=== PATIENT | female | born 1955 | race Caucasian/White ===

== ENCOUNTER 2017-05-07 06:35 | Emergency (ER) | payer BC ==
[2017-05-07 06:51] VITALS: TEMP 98.2; BMI 26.5
--- NOTE | 2017-05-07 07:06 | PDOC ---
History of Present Illness - General Chief Complaint: Headache Stated Complaint: HEADACHE, SINUS PAIN Time Seen by Provider: 05/07/17 07:06 - History of Present Illness Initial Comments: 05/07/17 07:26 Ms. Machuca is a 61 yo female with a significant past medical history of HTN, endometriosis and thyroid disease who presents to the emergency department with a one week history of runny nose, sinus pain, body aches/pains, chills, and headache. The patient denies chest pain, shortness of breath, and dizziness. Denies fever , nausea, vomit, diarrhea and constipation. Denies dysuria, frequency, urgency and hematuria. Allergies: NKDA Past surgical history: Illeostomy for endometriosis complications Past History - Past Medical History Allergies/Adverse Reactions: Allergies Allergy/AdvReac Type Severity Reaction Status Date / Time No Known Allergies Allergy Verified 05/07/17 06:47 Home Medications: Ambulatory Orders Thyroid,Pork [[place] Thyroid] 60 mg PO DAILY 08/02/12 Estrogens,Conjugated [Premarin] 0.3 mg PO DAILY 05/24/14 Ibuprofen [Advil -] 400 mg PO PRN PRN 05/24/14 Losartan Potassium [Cozaar] 50 mg PO BID 05/24/14 Amoxicillin/Potassium Clav [Amox-Clav 500-125 mg Tablet] 1 each PO TID #21 tablet 05/07/17 Anemia: No Asthma: No Cancer: No CHF: No Diabetes: No HTN: Yes Hypercholesterolemia: No Thyroid Disease: Yes - Surgical History Abdominal Surgery: Yes (ABD SURGERY,ILEOSTOMY WITH REVERSAL) - Suicide/Smoking/Psychosocial Hx Smoking Status: No Smoking History: Never smoked Have you smoked in the past 12 months: No Number of Cigarettes Smoked Daily: 0 Information on smoking cessation initiated: No Hx Alcohol Use: No Drug/Substance Use Hx: No Substance Use Type: None Review of Systems - Review of Systems Comments:: 05/07/17 07:27 GENERAL/CONSTITUTIONAL: +Chills. General body aches. No weakness. HEAD, EYES, EARS, NOSE AND THROAT: +Sinus pain with rhinnorhea. No change in vision. No ear pain or discharge. No sore throat. CARDIOVASCULAR: No chest pain or shortness of breath RESPIRATORY: +Cough, no wheezing or hemoptysis. GASTROINTESTINAL: No nausea, vomiting, diarrhea or constipation. GENITOURINARY: No dysuria, frequency, or change in urination. MUSCULOSKELETAL: No joint or muscle swelling or pain. No neck or back pain. SKIN: No rash NEUROLOGIC: +Hheadache, no vertigo, loss of consciousness, or change in strength /sensation. ENDOCRINE: No increased thirst. No abnormal weight change HEMATOLOGIC/LYMPHATIC: No anemia, easy bleeding, or history of blood clots. ALLERGIC/IMMUNOLOGIC: No hives or skin allergy. *Physical Exam - Vital Signs Last Vital Signs Temp Pulse Resp BP Pulse Ox 98.2 F 57 L 14 151/82 100 05/07/17 06:48 05/07/17 06:48 05/07/17 06:48 05/07/17 06:48 05/07/17 06:48 - Physical Exam Comments: 05/07/17 07:27 GENERAL: Awake, alert, and fully oriented, in no acute distress HEAD: +No tenderness to sinus palpation. No signs of trauma, normocephalic, atraumatic EYES: PERRLA, EOMI, sclera anicteric, conjunctiva clear ENT: Auricles normal inspection, hearing grossly normal, nares patent, oropharynx clear without exudates. Moist mucosa NECK: Normal ROM, supple, no lymphadenopathy, JVD, or masses LUNGS: No distress, speaks full sentences, clear to auscultation bilaterally HEART: Regular rate and rhythm, normal S1 and S2, no murmurs, rubs or gallops, peripheral pulses normal and equal bilaterally. ABDOMEN: Soft, nontender, normoactive bowel sounds. No guarding, no rebound. No masses EXTREMITIES: Normal inspection, Normal range of motion, no edema. No clubbing or cyanosis. NEUROLOGICAL: Cranial nerves II through XII grossly intact. Normal speech, normal gait, no focal sensorimotor deficits SKIN: Warm, Dry, normal turgor, no rashes or lesions noted. Medical Decision Making - Medical Decision Making 05/07/17 07:34 Ms. Machuca presents with aches/pains, chills, sinus pressure, etc. 05/07/17 08:05 Flu swab negative. Will discharge with amoxil prescription for sinusitis. *DC/Admit/Observation/Transfer Diagnosis at time of Disposition: Sinusitis Qualifiers: Sinusitis location: unspecified location Chronicity: acute Recurrence: not specified as recurrent Qualified Code(s): J01.90 - Acute sinusitis, unspecified ; J01.90 - Acute sinusitis, unspecified - Discharge Dispostion Disposition: HOME
--- NOTE | 2017-05-07 08:18 | PDOC ---
Attending Attestation - Resident Resident Name: Bowen Hernandez - ED Attending Attestation I have performed the following: I have examined & evaluated the patient, The case was reviewed & discussed with the resident, I agree w/resident's findings & plan, Exceptions are as noted - Medical Decision Making 05/07/17 08:18 A portion of this note was written by my scribe under my supervision. Vital Signs Temp Pulse Resp BP Pulse Ox 98.2 F 57 L 14 151/82 100 05/07/17 06:48 05/07/17 06:48 05/07/17 06:48 05/07/17 06:48 05/07/17 06:48 61 yo F c hx DM, HTN, HLD p/w headache, body aches, chills, facial pain. Pt reports she gets sinus infections yearly that typically requires amoxicillin. Denies fevers. This has been occurring for over a week with facial pain. Likely sinusitis, probable viral vs. early bacterial. Given the duration of symptoms and pt's history, will initiate amoxicillin. Supportive care Follow up with PMD <Jacobo Gong - Last Filed: 05/07/17 08:12> - HPI HPI: 05/07/17 08:26 61 yr old female, with significant past medical history of HTN, endometriosis, thyroid disease, who presents to the emergency room today complaining of nasal congestion, body aches, facial pain, headache, chills x1 week. She states that she often gets sinus infections around this time of year and these current symptoms feel similar. Denies fever, nausea, vomiting, abdominal pain. Denies cough, sore throat. Denies abdominal pain. Denies chest pain, SOB. Allergies: NKDA PCP: Dr. Nupur Street - Physicial Exam PE: 05/07/17 08:27 GENERAL: Awake, alert, and fully oriented, in no acute distress HEAD: No signs of trauma EYES: PERRLA, EOMI, sclera anicteric, conjunctiva clear ENT: +maxillary sinus tenderness. tympanic membranes normal. Auricles normal inspection, hearing grossly normal, nares patent, oropharynx clear without exudates. Moist mucosa NECK: Normal ROM, supple, no lymphadenopathy, JVD, or masses LUNGS: Breath sounds equal, clear to auscultation bilaterally. No wheezes, and no crackles HEART: Regular rate and rhythm, normal S1 and S2, no murmurs, rubs or gallops ABDOMEN: Soft, nontender, normoactive bowel sounds. No guarding, no rebound. No masses EXTREMITIES: Normal range of motion, no edema. No clubbing or cyanosis. No cords, erythema, or tenderness NEUROLOGICAL: Cranial nerves II through XII grossly intact. Normal speech, normal gait SKIN: Warm, Dry, normal turgor, no rashes or lesions noted. <Yamilka Esteves - Last Filed: 05/07/17 08:30>
[2017-05-07 08:39] VITALS: BP 150/80; PULSE 58
--- NOTE | 2017-05-07 09:48 | PDOC ---
Patient Follow-up (Call Back) - Post ED Follow - Up Chief Complaint: RX issue Condition at time of discharge: Good Disposition at time of original discharge: HOME Reason for Call Back: Complaint/Condition F/U (Pt. called to state that her prescription did not get sent to the pharmacy. Pharmacy not recieving our e- script. Called in augmentin 500-125mg 1 tab TID #21 no refills as prescribed by her doctor.)
== END 2017-05-07 08:40 | disposition home or self-care (01) ==
LOC: JER 06:35
DX: J01.90 Acute sinusitis, unspecified (principal); I10 Essential (primary) hypertension; E07.9 Disorder of thyroid, unspecified
CPT/HCPCS: 87804; 99282-25

== ENCOUNTER 2018-04-27 00:25 | Emergency (ER) | payer BC ==
[2018-04-27 00:41] VITALS: BP 166/70; PULSE 64; TEMP 98.3; BMI 27.3
--- NOTE | 2018-04-27 01:01 | PDOC ---
History of Present Illness <Jackson Morse - Last Filed: 04/27/18 01:00> - General History Source: Patient Exam Limitations: No Limitations - History of Present Illness Initial Comments: 04/27/18 01:09 The patient is a 62-year-old female with past medical history significant for HTN, DM, HLD, and hypothyroidism presents to the emergency department with elevated blood pressure. The patient reports earlier today she noted her blood pressure was 200/100. The patient reports following she took her routined 50mg of losartan, without a decrease in BP. The patient reports around 10:00 she took 2.5 of bystolic The patient reports around 12:00 am she noticed no relief, so she took another 2.5 mg of the medication, with a noted decrease in blood pressure. The patient denies a headache, nausea, vomiting, chest pain, shortness of breath, recent illness or travel, rashes, bruises, or chills. Allergies: NKA PCP: Dr. Street/Osbaldo. <Aubree Conde - Last Filed: 04/27/18 01:27> - General Chief Complaint: Blood Pressure Problem Stated Complaint: HIGH BLOOD PRESSURE Time Seen by Provider: 04/27/18 00:50 Past History - Past Medical History Anemia: No Asthma: No Cancer: No Cardiac Disorders: No CVA: No COPD: No CHF: No DVT: No Dementia: No Diabetes: No Dialysis: No GI Disorders: No Disorders: No HTN: Yes Hypercholesterolemia: No Kidney Stones: No Liver Disease: No Psychiatric Problems: No Seizures: No Thyroid Disease: Yes Lung CA: No - Surgical History Abdominal Surgery: Yes (ABD SURGERY,ILEOSTOMY WITH REVERSAL) - Suicide/Smoking/Psychosocial Hx Smoking Status: No Smoking History: Never smoked Have you smoked in the past 12 months: No Number of Cigarettes Smoked Daily: 0 Information on smoking cessation initiated: No Hx Alcohol Use: No Drug/Substance Use Hx: No Substance Use Type: None <Jackson Morse - Last Filed: 04/27/18 01:00> <Aubree Conde - Last Filed: 04/27/18 01:27> - Past Medical History Allergies/Adverse Reactions: Allergies Allergy/AdvReac Type Severity Reaction Status Date / Time No Known Allergies Allergy Verified 04/27/18 00:42 Home Medications: Ambulatory Orders Thyroid,Pork [[place] Thyroid] 60 mg PO DAILY 08/02/12 Estrogens,Conjugated [Premarin] 0.3 mg PO DAILY 05/24/14 Losartan Potassium [Cozaar] 50 mg PO BID 05/24/14 Estradiol [Estrace] 42.5 gm VG DAILY 01/21/18 Review of Systems - Review of Systems Comments:: 04/27/18 01:09 ROS: A complete review of 10 out of 10 review of systems is taken and is negative apart from what is previously mentioned below and in the HPI. <Aubree Conde - Last Filed: 04/27/18 01:27> *Physical Exam - Vital Signs Last Vital Signs Temp Pulse Resp BP Pulse Ox 98.3 F 64 18 166/70 100 04/27/18 00:38 04/27/18 00:38 04/27/18 00:38 04/27/18 00:38 04/27/18 00:38 <Jackson Morse - Last Filed: 04/27/18 01:00> - Vital Signs Last Vital Signs Temp Pulse Resp BP Pulse Ox 98.3 F 64 18 166/70 100 04/27/18 00:38 04/27/18 00:38 04/27/18 00:38 04/27/18 00:38 04/27/18 00:38 - Physical Exam Comments: 04/27/18 01:09 Vitals: Triage vital signs reviewed General Appearance: No acute distress, well nourished, well developed Neck: Supple; No nuchal rigidity Chest Wall: Nontender Cardiac: Regular rate and rhythm, no murmurs, no rubs, no gallops Lungs: Clear to auscultation bilateral, good air movement bilaterally Abdomen: Soft, nondistended, normal bowel sounds, nontender to palpation Extremities: Full range of motion to all extremities, no cyanosis, clubbing, or edema Skin: Warm and dry, no rashes or lesions, no rash, no petechiae Neuro: AOX3; Cranial Nerves 2-12 grossly intact, Strength intact to all extremities, Sensation intact to all extremities, gait normal Psych: Normal mood, normal affect 04/27/18 01:26 <Aubree Conde - Last Filed: 04/27/18 01:27> Medical Decision Making - Medical Decision Making 04/27/18 01:20 The patient is a 62-year-old female with past medical history significant for HTN, DM, HLD, and hypothyroidism presents to the emergency department with elevated blood pressure. The patient reports earlier today she noted her blood pressure was 200/100. The patient reports following she took her routined 50mg of losartan, without a decrease in BP. The patient reports around 10:00 she took 2.5 of bystolic The patient reports around 12:00 am she noticed no relief, so she took another 2.5 mg of the medication, with a noted decrease in blood pressure. The patient denies a headache, nausea, vomiting, chest pain, shortness of breath, recent illness or travel, rashes, bruises, or chills. <Aubree Conde - Last Filed: 04/27/18 01:27> *DC/Admit/Observation/Transfer - Discharge Dispostion Decision to Admit order: No <Jackson Morse - Last Filed: 04/27/18 01:00> - Attestations Scribe Attestion: 04/27/18 01:09 Documentation prepared by Aubree Conde, acting as medical laboratory technicians for Jackson Morse MD. <Aubree Conde - Last Filed: 04/27/18 01:27> Diagnosis at time of Disposition: High blood pressure Qualifiers: Hypertension type: unspecified Qualified Code(s): I10 - Essential (primary) hypertension - Discharge Dispostion Disposition: HOME - Referrals Referrals: Nolvia Street MD [Primary Care Provider] - - Patient Instructions Additional Instructions: Continue to take your medications as prescribed. Follow up with her doctor on Saturday to have her blood pressure rechecked. Return to the emergency department for any severe headache chest pain shortness of breath or for any concerns. - Post Discharge Activity
== END 2018-04-27 01:09 | disposition home or self-care (01) ==
LOC: JER 00:25
DX: I10 Essential (primary) hypertension (principal); E78.5 Hyperlipidemia, unspecified; E03.9 Hypothyroidism, unspecified; E11.9 Type 2 diabetes mellitus without complications
CPT/HCPCS: 99281-25

== ENCOUNTER 2019-07-07 22:11 | Emergency (ER) | payer BC ==
[2019-07-07 22:30] VITALS: TEMP 98.1; BMI 26.2
[2019-07-07] MEDS ORDERED: HYDROCHLOROTHIAZIDE 25 MG TABLET (FP) PO ONE (22:48)
[2019-07-07] MEDS ORDERED: amLODIPine BESYLATE 10 MG TABLET (FP) PO ONE (22:54)
[2019-07-07] MEDS ORDERED: amLODIPine BESYLATE 5 MG TABLET (FP) ONE (23:00)
[2019-07-07] MEDS ORDERED: HYDROCHLOROTHIAZIDE 25 MG TABLET (FP) ONE (23:00)
[2019-07-08] MEDS ORDERED: diazePAM 5 MG TABLET PO ONE (00:09)
--- NOTE | 2019-07-08 00:10 | PDOC ---
Documentation entered by Bernarda Raza SCRIBE, acting as scribe for Daksha Dotson MD. Daksha Dotson MD: This documentation has been prepared by the Luz Marina thomas Xhesika, SCRIBE, under my direction and personally reviewed by me in its entirety. I confirm that the documentation accurately reflects all work, treatment, procedures, and medical decision making performed by me. History of Present Illness - General Chief Complaint: Blood Pressure Problem Stated Complaint: HYPERTENTION Time Seen by Provider: 07/07/19 22:37 History Source: Patient Exam Limitations: No Limitations - History of Present Illness Initial Comments: 07/07/19 22:52 The patient is a 63 year old female with a past medical history significant for HTN, HLD, and hypothyroidism presents to the emergency department with 1 day of elevated blood pressure. The patient reports earlier today she noted her blood pressure was in the 200s (normally 120's- 150's). The patient reports she took her routine losartan and bystolic, without a decrease in BP so she took another bystolic at 12:00am. The patient reports she was not able to sleep last night and feels anxious due to her HTN. Pt notes she spoke with her senior sales administrator and was advised to come to the ED. The patient denies chest pain, [place], shortness of breath, headache and dizziness. Denies fever, chills, cough, nausea, vomiting, diarrhea and constipation. Denies dysuria, frequency, urgency and hematuria. Allergies: NKA PCP: Dr. Street/Felix Cards: [place] Past History - Past Medical History Allergies/Adverse Reactions: Allergies Allergy/AdvReac Type Severity Reaction Status Date / Time No Known Allergies Allergy Verified 04/27/18 00:42 Home Medications: Ambulatory Orders Thyroid,Pork [[place] Thyroid] 60 mg PO DAILY 08/02/12 Estrogens,Conjugated [Premarin] 0.3 mg PO DAILY 05/24/14 Losartan Potassium [Cozaar] 50 mg PO BID 05/24/14 Estradiol [Estrace] 42.5 gm VG DAILY 01/21/18 Anemia: No Asthma: No Cancer: No Cardiac Disorders: No CVA: No COPD: No CHF: No DVT: No Dementia: No Diabetes: No Dialysis: No GI Disorders: No Disorders: No HTN: Yes Hypercholesterolemia: No Kidney Stones: No Liver Disease: No Psychiatric Problems: No Seizures: No Thyroid Disease: Yes Lung CA: No - Surgical History Abdominal Surgery: Yes (ABD SURGERY,ILEOSTOMY WITH REVERSAL) - Psycho Social/Smoking Cessation Hx Smoking Status: No Smoking History: Never smoked Have you smoked in the past 12 months: No Number of Cigarettes Smoked Daily: 0 Hx Alcohol Use: No Drug/Substance Use Hx: No Substance Use Type: None Review of Systems - Review of Systems Able to Perform ROS?: Yes Comments:: 07/07/19 22:53 GENERAL/CONSTITUTIONAL: No fever or chills. No weakness. HEAD, EYES, EARS, NOSE AND THROAT: No change in vision. No ear pain or discharge. No sore throat. CARDIOVASCULAR: + elevated blood pressure. No chest pain or shortness of breath. RESPIRATORY: No cough, wheezing, or hemoptysis. GASTROINTESTINAL: No nausea, vomiting, diarrhea or constipation. GENITOURINARY: No dysuria, frequency, or change in urination. MUSCULOSKELETAL: No joint or muscle swelling or pain. No neck or back pain. SKIN: No rash NEUROLOGIC: No headache, vertigo, loss of consciousness, or change in strength/ sensation. ENDOCRINE: No increased thirst. No abnormal weight change. HEMATOLOGIC/LYMPHATIC: No anemia, easy bleeding, or history of blood clots. ALLERGIC/IMMUNOLOGIC: No hives or skin allergy. *Physical Exam - Vital Signs Last Vital Signs Temp Pulse Resp BP Pulse Ox 98.1 F 66 20 204/83 H 98 07/07/19 22:15 07/07/19 22:15 07/07/19 22:15 07/07/19 22:15 07/07/19 22:15 - Physical Exam 07/07/19 22:53 GENERAL: Awake, alert, and fully oriented, in no acute distress LUNGS: Breath sounds equal, clear to auscultation bilaterally. No wheezes, and no crackles HEART: Regular rate and rhythm, normal S1 and S2, no murmurs, rubs or gallops ABDOMEN: Soft, nontender, normoactive bowel sounds. No guarding, no rebound. No masses EXTREMITIES: Normal range of motion, no edema. No clubbing or cyanosis. No cords, erythema, or tenderness NEUROLOGICAL: Cranial nerves II through XII grossly intact. SKIN: Warm, Dry, normal turgor, no rashes or lesions noted. ED Treatment Course - LABORATORY CBC & Chemistry Diagram: 07/07/19 23:43 - Medications Given in the ED: ED Medications Discontinued Medications Generic Name Dose Route Start Last Admin Trade Name Ashly PRN Reason Stop Dose Admin Amlodipine Besylate 10 mg 07/07/19 22:54 07/07/19 23:02 Norvasc - PO 07/07/19 22:55 10 mg ONCE ONE Administration Hydrochlorothiazide 25 mg 07/07/19 22:48 07/07/19 23:02 Hctz - PO 07/07/19 22:49 25 mg ONCE ONE Administration Medical Decision Making - Medical Decision Making 07/07/19 23:50 pt with essential HTN presents because she is anxious about her BP which is elevated she had her bystolic increased yesterday by hr PCP but she said her BP was still elevated 07/08/19 00:38 Repeat blood pressure was 164/81 and patient is requesting to go home Patient denies severe headache associated nausea vomiting visual changes chest pain or shortness of breath Impression essential hypertension Plan follow-up with PCP Discharge - Discharge Information Problems reviewed: Yes Clinical Impression/Diagnosis: High blood pressure Qualifiers: Hypertension type: essential hypertension Qualified Code(s): I10 - Essential ( primary) hypertension Condition: Good Disposition: HOME - Admission No - Follow up/Referral Referrals: Nolvia Street MD [Primary Care Provider] - - Patient Discharge Instructions Patient Printed Discharge Instructions: DI for High Blood Pressure Additional Instructions: Please folllow up with your regular physician and keep your appointment with your specialist - Post Discharge Activity
[2019-07-08] MEDS ORDERED: diazePAM 5 MG TABLET ONE (00:11)
[2019-07-08 00:20] LABS: BLOOD UREA NITROGEN 15.5 mg/dL (7-18); CALCIUM 9.4 mg/dL (8.5-10.1); CREATININE 0.8 mg/dL (0.55-1.3); POTASSIUM 3.6 mmol/L (3.5-5.1)
[2019-07-08 00:37] VITALS: BP 164/81; PULSE 63
== END 2019-07-08 00:45 | disposition home or self-care (01) ==
LOC: JER 22:11
DX: I10 Essential (primary) hypertension (principal); K92.9 Disease of digestive system, unspecified; E78.5 Hyperlipidemia, unspecified; E03.9 Hypothyroidism, unspecified
CPT/HCPCS: 36415; 80048; 99282-25

== ENCOUNTER 2021-02-01 09:58 | Emergency (ER) | payer BC ==
[2021-02-01 10:09] VITALS: TEMP 97.5; BMI 26.5
[2021-02-01] MEDS ORDERED: ACETAMINOPHEN 1000 MG/100 ML VIAL (NON FORMULARY) IVPB ONE (11:06)
[2021-02-01] MEDS ORDERED: ACETAMINOPHEN INJECTION 100 ML IVPB ONE (11:27)
[2021-02-01 11:50] LABS: BASO % 1.2 % (0-2.0); EOS % 0.7 % (0-4.5); HEMATOCRIT 38.8 % (32.4-45.2); HEMOGLOBIN 13.1 GM/dL (10.7-15.3); LYMPH % 18.9 % (8-40); MCHC 33.7 g/dl (32.0-36.0); MEAN CELL VOLUME 85.9 fl (80-96); MEAN PLT VOLUME 8.9 fl (7.5-11.1); MONO % 7.1 % (3.8-10.2); NEUT % 72.1 % (42.8-82.8); PLATELET COUNT 266 10^3/uL (134-434); RBC 4.52 M/mm3 (3.60-5.2); RDW 13.8 % (11.6-15.6); WHITE BLOOD COUNT 7.1 K/mm3 (4.0-10.0)
[2021-02-01 11:52] LABS: PH,URINE 5.5 (5.0-8.0); URINE APPEARANCE CLEAR; URINE BILIRUBIN NEGATIVE (NEGATIVE); URINE COLOR YELLOW; URINE GLUCOSE (UA) NEGATIVE (NEGATIVE); URINE KETONE NEGATIVE (NEGATIVE); URINE LEUK ESTERASE NEGATIVE (NEGATIVE); URINE NITRITE NEGATIVE (NEGATIVE); URINE PROTEIN NEGATIVE (NEGATIVE); URINE UROBILINOGEN 0.2 mg/dL (0.2-1.0)
[2021-02-01 12:09] LABS: ALBUMIN 3.7 g/dl (3.4-5.0); BLOOD UREA NITROGEN 17.8 mg/dL (7-18); CALCIUM 9.3 mg/dL (8.5-10.1)
[2021-02-01 12:12] LABS: CREATININE 0.8 mg/dL (0.55-1.3)
[2021-02-01 12:14] LABS: BILIRUBIN,TOTAL 0.4 mg/dL (0.2-1); TOT PROT 8.2 g/dl (6.4-8.2)
[2021-02-01 13:54] VITALS: BP 145/67; PULSE 57
[2021-02-01] MEDS ORDERED: metroNIDAZOLE 500 MG TABLET PO ONE (14:06)
[2021-02-01] MEDS ORDERED: CIPROFLOXACIN 500 MG TABLET (RESTRICTED TO ID) PO ONE (14:06)
[2021-02-01] MEDS ORDERED: metroNIDAZOLE 250 MG TABLET ONE (14:15)
== END 2021-02-01 14:28 | disposition home or self-care (01) ==
LOC: JER 09:58
PROC: 3E0333Z Introduction of Anti-inflammatory into Peripheral Vein, Percutaneous Approach (ICD-10-PCS; principal; 2021-02-01)
DX: K57.20 Diverticulitis of large intestine with perforation and abscess without bleeding (principal)
CPT/HCPCS: 36415; 74176-TC; 80053; 81003; 83690; 85025; 87086; 96374; 99284-25; J0131

== ENCOUNTER 2021-02-06 10:54 | Observation (INO) | payer BC ==
[2021-02-06 12:20] LABS: BASO % 1.3 % (0-2.0); HEMATOCRIT 38.8 % (32.4-45.2); HEMOGLOBIN 12.9 GM/dL (10.7-15.3); LYMPH % 23.2 % (8-40); MCH 28.5 pg (25.7-33.7); MCHC 33.2 g/dl (32.0-36.0); MEAN PLT VOLUME 8.9 fl (7.5-11.1); MONO % 10.8 % (3.8-10.2); NEUT % 63.7 % (42.8-82.8); PLATELET COUNT 287 10^3/uL (134-434); RBC 4.51 M/mm3 (3.60-5.2); RDW 14.1 % (11.6-15.6); WHITE BLOOD COUNT 5.5 K/mm3 (4.0-10.0)
[2021-02-06 12:45] LABS: ALBUMIN 3.7 g/dl (3.4-5.0)
[2021-02-06 12:46] LABS: BLOOD UREA NITROGEN 13.9 mg/dL (7-18)
[2021-02-06] MEDS ORDERED: ACETAMINOPHEN 1000 MG/100 ML VIAL (NON FORMULARY) IVPB ONE (12:48)
[2021-02-06 12:49] LABS: CREATININE 0.8 mg/dL (0.55-1.3)
[2021-02-06 12:50] LABS: BILIRUBIN,TOTAL 0.4 mg/dL (0.2-1); TOT PROT 7.9 g/dl (6.4-8.2)
[2021-02-06] MEDS ORDERED: ACETAMINOPHEN INJECTION 100 ML IVPB ONE (12:56)
[2021-02-06 15:55] LABS: URINE APPEARANCE Clear; URINE BILIRUBIN Negative (NEGATIVE); URINE COLOR Yellow; URINE GLUCOSE (UA) Negative (NEGATIVE); URINE KETONE 1+ (NEGATIVE); URINE LEUK ESTERASE Negative (NEGATIVE); URINE NITRITE Negative (NEGATIVE); URINE PROTEIN Negative (NEGATIVE); URINE UROBILINOGEN 0.2 mg/dL (0.2-1.0)
[2021-02-06] MEDS ORDERED: KETOROLAC TROMETHAMINE 30 MG/1 ML VIAL IVPUSH ONE (16:08)
[2021-02-06] MEDS ORDERED: KETOROLAC TROMETHAMINE 30 MG/1 ML VIAL ONE (16:09)
[2021-02-06] MEDS ORDERED: morphine CARPU-JECT 2 MG/1 ML DISP.SYRIN IVPUSH ONE (16:45)
[2021-02-06] MEDS ORDERED: MORPHINE SULFATE 2 MG/ML VIAL ONE (16:56)
[2021-02-06 18:07] VITALS: BMI 25.7
[2021-02-06] MEDS ORDERED: ONDANSETRON 4 MG/2 ML VIAL IVPUSH PRN (18:27)
[2021-02-06] MEDS ORDERED: ACETAMINOPHEN 1000 MG/100 ML VIAL (NON FORMULARY) IVPB PRN (18:28)
[2021-02-06] MEDS: D5-1/2NS+20 MEQ KCL - 20 MEQ/1,000 ML INFUS.BAG IV SCH (19:00)
[2021-02-06] MEDS ORDERED: amLODIPine BESYLATE 5 MG TABLET (FP) PO ONE (21:30)
[2021-02-06] MEDS: NEBIVOLOL 5 MG TABLET (FP) PO SCH (22:02)
[2021-02-07 07:36] LABS: BASO % 0.5 % (0-2.0); EOS % 3.3 % (0-4.5); HEMATOCRIT 38.1 % (32.4-45.2); HEMOGLOBIN 13.1 GM/dL (10.7-15.3); LYMPH % 28.3 % (8-40); MCH 29.4 pg (25.7-33.7); MCHC 34.4 g/dl (32.0-36.0); MEAN CELL VOLUME 85.5 fl (80-96); MEAN PLT VOLUME 8.7 fl (7.5-11.1); MONO % 11.1 % (3.8-10.2); NEUT % 56.8 % (42.8-82.8); PLATELET COUNT 288 10^3/uL (134-434); RBC 4.46 M/mm3 (3.60-5.2); RDW 13.9 % (11.6-15.6)
[2021-02-07 08:01] LABS: ALBUMIN 3.6 g/dl (3.4-5.0); BLOOD UREA NITROGEN 8.9 mg/dL (7-18); CALCIUM 8.8 mg/dL (8.5-10.1)
[2021-02-07 08:04] LABS: CREATININE 0.8 mg/dL (0.55-1.3)
[2021-02-07 08:06] LABS: BILIRUBIN,TOTAL 0.6 mg/dL (0.2-1); TOT PROT 7.8 g/dl (6.4-8.2)
[2021-02-07] MEDS: amLODIPine BESYLATE 5 MG TABLET (FP) PO SCH (10:21)
[2021-02-07] MEDS: PANTOPRAZOLE SODIUM 40 MG VIAL IVPUSH SCH (10:21)
[2021-02-07] MEDS: LOSARTAN POTASSIUM 50 MG TABLET PO SCH (10:21)
[2021-02-07] MEDS ORDERED: LEVOTHYROXINE NA 75 MCG TABLET (FP) PO ONE (12:21)
[2021-02-07] MEDS ORDERED: LEVOTHYROXINE NA 88 MCG TABLET (FP) PO ONE (12:42)
[2021-02-07] MEDS: LEVOTHYROXINE NA 88 MCG TABLET (FP) PO SCH (13:27)
[2021-02-07] MEDS ORDERED: PT OWN MED DRAWER 7, Y5N ONE (22:00)
[2021-02-07] MEDS: POLYETHYLENE GLYCOL (HEALTHYLAX) 3350 17 GM PACKET PO SCH (22:02)
[2021-02-07] MEDS: NEBIVOLOL 5 MG TABLET (FP) PO SCH (22:03)
[2021-02-07] MEDS: D5-1/2NS+20 MEQ KCL - 20 MEQ/1,000 ML INFUS.BAG IV SCH (22:07)
[2021-02-08] MEDS: D5-1/2NS+20 MEQ KCL - 20 MEQ/1,000 ML INFUS.BAG IV SCH ×2 (04:15→18:46)
[2021-02-08] MEDS ORDERED: PT OWN MED DRAWER 7, Y5N ONE ×5 (05:59→20:16)
[2021-02-08] MEDS: LEVOTHYROXINE NA 88 MCG TABLET (FP) PO SCH (06:01)
[2021-02-08] MEDS: POLYETHYLENE GLYCOL (HEALTHYLAX) 3350 17 GM PACKET PO SCH ×3 (06:02→21:46)
[2021-02-08] MEDS ORDERED: LEVOTHYROXINE NA 75 MCG TABLET (FP) PO SCH (07:00)
[2021-02-08 08:51] LABS: BASO % 1.4 % (0-2.0); EOS % 5.9 % (0-4.5); HEMOGLOBIN 12.7 GM/dL (10.7-15.3); LYMPH % 29.6 % (8-40); MCH 29.4 pg (25.7-33.7); MCHC 34.2 g/dl (32.0-36.0); NEUT % 51.1 % (42.8-82.8); PLATELET COUNT 290 10^3/uL (134-434); RDW 13.8 % (11.6-15.6)
[2021-02-08 09:00] LABS: ALBUMIN 3.4 g/dl (3.4-5.0); BLOOD UREA NITROGEN 5.4 mg/dL (7-18); CALCIUM 8.6 mg/dL (8.5-10.1)
[2021-02-08 09:04] LABS: CREATININE 0.7 mg/dL (0.55-1.3)
[2021-02-08 09:05] LABS: BILIRUBIN,TOTAL 0.5 mg/dL (0.2-1); TOT PROT 7.2 g/dl (6.4-8.2)
[2021-02-08] MEDS: LOSARTAN POTASSIUM 50 MG TABLET PO SCH (09:48)
[2021-02-08] MEDS: amLODIPine BESYLATE 5 MG TABLET (FP) PO SCH (09:49)
[2021-02-08] MEDS: PANTOPRAZOLE SODIUM 40 MG VIAL IVPUSH SCH (09:50)
[2021-02-08] MEDS ORDERED: FLUCONAZOLE 150 MG TABLET PO ONE (12:00)
[2021-02-08] MEDS ORDERED: ACETAMINOPHEN 325 MG TABLET (FP) PO PRN (14:25)
[2021-02-08] MEDS ORDERED: LORazepam 0.5 MG TABLET PO ONE (19:49)
[2021-02-08] MEDS ORDERED: diazePAM 2 MG TABLET PO ONE (19:58)
[2021-02-08] MEDS: NEBIVOLOL 5 MG TABLET (FP) PO SCH (21:46)
[2021-02-09] MEDS: POLYETHYLENE GLYCOL (HEALTHYLAX) 3350 17 GM PACKET PO SCH (06:14)
[2021-02-09] MEDS: LEVOTHYROXINE NA 88 MCG TABLET (FP) PO SCH (06:14)
[2021-02-09 08:24] VITALS: BP 140/73; PULSE 65; TEMP 97.8
[2021-02-09] MEDS: amLODIPine BESYLATE 5 MG TABLET (FP) PO SCH (09:57)
[2021-02-09] MEDS: PANTOPRAZOLE SODIUM 40 MG VIAL IVPUSH SCH (09:57)
[2021-02-09] MEDS: LOSARTAN POTASSIUM 50 MG TABLET PO SCH (09:57)
[2021-02-09] MEDS ORDERED: POLYETHYLENE GLYCOL (HEALTHYLAX) 3350 17 GM PACKET PO SCH (10:00)
== END 2021-02-09 12:59 | disposition home or self-care (01) ==
LOC: JER 10:54 → UNDOADMOB 13:10 → JERBED 13:10 → INTOOBSV 13:10 → J6S 18:14 → JERBED 18:14 → J6S 02-07 14:19
PROVIDERS: ADMIT Internal Medicine; ATTEND Internal Medicine
PROC: 3E033NZ Introduction of Analgesics, Hypnotics, Sedatives into Peripheral Vein, Percutaneous Approach (ICD-10-PCS; principal; 2021-02-07)
PROC: 3E03329 Introduction of Other Anti-infective into Peripheral Vein, Percutaneous Approach (ICD-10-PCS; 2021-02-07)
PROC: 3E033GC Introduction of Other Therapeutic Substance into Peripheral Vein, Percutaneous Approach (ICD-10-PCS; 2021-02-07)
DX: K57.92 Diverticulitis of intestine, part unspecified, without perforation or abscess without bleeding (principal); K59.00 Constipation, unspecified; I10 Essential (primary) hypertension; E78.5 Hyperlipidemia, unspecified; N20.0 Calculus of kidney; N80.9 Endometriosis, unspecified; R10.9 Unspecified abdominal pain; R93.3 Abnormal findings on diagnostic imaging of other parts of digestive tract; Z80.0 Family history of malignant neoplasm of digestive organs; Z87.42 Personal history of other diseases of the female genital tract; Z98.890 Other specified postprocedural states; M35.00 Sjogren syndrome, unspecified; E06.3 Autoimmune thyroiditis; R30.0 Dysuria; N89.8 Other specified noninflammatory disorders of vagina
CPT/HCPCS: 36415; 74176-TC; 80053; 81003; 82378; 83605; 83690; 85025; 86140; 87086; 96365; 96375; 96376; 99285-25; C9803; G0378; J0131; U0003; U0005

== ENCOUNTER 2022-11-11 05:11 | Emergency (ER) | payer BC ==
[2022-11-11 05:19] VITALS: BMI 25.7
[2022-11-11] MEDS ORDERED: ACETAMINOPHEN 1000 MG/100 ML BAG IVPB ONE (08:41)
[2022-11-11] MEDS ORDERED: METOCLOPRAMIDE HCL INJECTION 10 MG/2 ML VIAL IVPB ONE (08:41)
[2022-11-11] MEDS ORDERED: METOCLOPRAMIDE HCL INJECTION 10 MG/2 ML VIAL ONE (08:42)
[2022-11-11] MEDS ORDERED: ACETAMINOPHEN INJECTION 100 ML IVPB ONE (08:42)
[2022-11-11] MEDS ORDERED: METOCLOPRAMIDE HCL 10 MG TABLET (FP) PO ONE ×2 (08:57→09:02)
[2022-11-11] MEDS ORDERED: ACETAMINOPHEN 500 MG TABLET (FP) PO ONE (08:57)
[2022-11-11] MEDS ORDERED: ACETAMINOPHEN 325 MG TABLET (FP) ONE (09:02)
[2022-11-11 09:16] LABS: URINE APPEARANCE CLEAR; URINE BILIRUBIN NEGATIVE (NEGATIVE); URINE COLOR YELLOW; URINE GLUCOSE (UA) NEGATIVE (NEGATIVE); URINE KETONE NEGATIVE (NEGATIVE); URINE LEUK ESTERASE NEGATIVE (NEGATIVE); URINE NITRITE NEGATIVE (NEGATIVE); URINE PROTEIN NEGATIVE (NEGATIVE); URINE UROBILINOGEN 0.2 mg/dL (0.2-1.0)
[2022-11-11 09:19] VITALS: BP 140/76; PULSE 63; RESP 18; TEMP 98.5
[2022-11-11 09:45] LABS: ALBUMIN 3.8 g/dl (3.4-5.0); BLOOD UREA NITROGEN 13.3 mg/dL (7-18); CALCIUM 9.1 mg/dL (8.5-10.1)
[2022-11-11 09:47] LABS: CREATININE 0.7 mg/dL (0.55-1.3)
[2022-11-11 09:49] LABS: BILIRUBIN,TOTAL 0.7 mg/dL (0.2-1); TOT PROT 8.7 g/dl (6.4-8.2)
[2022-11-11 09:53] LABS: N-TERMINAL BNP 303.3 pg/ml (5-125)
[2022-11-11 10:18] LABS: BASO % 0.9 % (0-2.0); EOS % 0.7 % (0-4.5); HEMATOCRIT 37.7 % (32.4-45.2); HEMOGLOBIN 12.8 GM/dL (10.7-15.3); LYMPH % 22.2 % (8-40); MEAN CELL VOLUME 85.3 fl (80-96); MEAN PLT VOLUME 8.4 fl (7.5-11.1); MONO % 6.6 % (3.8-10.2); NEUT % 69.6 % (42.8-82.8); PLATELET COUNT 285 10^3/uL (134-434); RBC 4.42 M/mm3 (3.60-5.2); WHITE BLOOD COUNT 5.8 K/mm3 (4.0-10.0)
[2022-11-11 10:57] LABS: ERYTHROCYTE SEDIMENTATION RATE 15 mm/hr (0-30)
== END 2022-11-11 13:29 | disposition home or self-care (01) ==
LOC: JER 05:11
DX: I10 Essential (primary) hypertension (principal)
CPT/HCPCS: 36415; 70450-TC; 71045-TC-FY; 80053; 81003; 83735; 83880; 84443; 85025; 85651; 86140; 87086; 93005; 93010; 99285-25

== ENCOUNTER 2024-05-06 12:50 | Observation (INO) | payer BC ==
[2024-05-06] MEDS ORDERED: ONDANSETRON 4 MG/2 ML VIAL ONE (14:14)
[2024-05-06] MEDS ORDERED: morphine SULFATE 4 MG/ML VIAL ONE ×2 (14:16→16:57)
[2024-05-06] MEDS: ONDANSETRON 4 MG/2 ML VIAL IVPUSH ONE (14:22)
[2024-05-06] MEDS: morphine CARPU-JECT 4 MG/1 ML DISP.SYRIN IVPUSH ONE ×2 (14:22→17:01)
[2024-05-06] MEDS: SODIUM CHLORIDE 0.9% 500 ML INFUS.BAG IV ONE (14:23)
[2024-05-06] MEDS ORDERED: KETOROLAC TROMETHAMINE 15 MG/ML VIAL ONE (14:30)
[2024-05-06 14:32] LABS: EOS % 0.3 % (0-4.5); HEMOGLOBIN 13.1 GM/dL (10.7-15.3); LYMPH % 18.4 % (8-40); MCH 29.8 pg (25.7-33.7); MCHC 34.4 g/dl (32.0-36.0); MEAN CELL VOLUME 86.7 fl (80-96); MONO % 5.7 % (3.8-10.2); NEUT % 74.6 % (42.8-82.8); PLATELET COUNT 312 10^3/uL (134-434); RBC 4.38 M/mm3 (3.60-5.2); RDW 13.9 % (11.6-15.6); WHITE BLOOD COUNT 8.8 K/mm3 (4.0-10.0)
[2024-05-06] MEDS: KETOROLAC TROMETHAMINE 15 MG/ML VIAL IVPUSH ONE (14:32)
[2024-05-06 14:35] LABS: EPI CELLS 16 /uL (0-25.1); HYALINE CASTS 1 /uL (0-3.1); PH,URINE 5.5 (5.0-8.0); URINE APPEARANCE CLEAR; URINE BACTERIA 76 /uL (0-1359); URINE BILIRUBIN NEGATIVE (NEGATIVE); URINE COLOR YELLOW; URINE GLUCOSE (UA) NEGATIVE (NEGATIVE); URINE KETONE TRACE (NEGATIVE); URINE LEUK ESTERASE NEGATIVE (NEGATIVE); URINE NITRITE NEGATIVE (NEGATIVE); URINE PROTEIN NEGATIVE (NEGATIVE); URINE RBC 278 /uL (0-23.9); URINE UROBILINOGEN 0.2 mg/dL (0.2-1.0); URINE WBC 15 /uL (0-25.8)
[2024-05-06 14:53] LABS: POTASSIUM 3.9 mmol/L (3.5-5.1)
[2024-05-06 14:55] LABS: ALBUMIN 3.7 g/dl (3.4-5.0); CALCIUM 9.7 mg/dL (8.5-10.1)
[2024-05-06 14:56] LABS: BLOOD UREA NITROGEN 18.1 mg/dL (7-18)
[2024-05-06 15:00] LABS: BILIRUBIN,TOTAL 0.3 mg/dL (0.2-1); TOT PROT 8.9 g/dl (6.4-8.2)
[2024-05-06] MEDS ORDERED: TAMSULOSIN HCL 0.4 MG CAP ONE (17:31)
[2024-05-06] MEDS: TAMSULOSIN HCL 0.4 MG CAP PO ONE (17:41)
[2024-05-06] MEDS ORDERED: CEFTRIAXONE 1 GM/50 ML BAG ONE (17:45)
[2024-05-06 17:46] LABS: INR 1.06 (0.83-1.09); PROTHROMBIN TIME (PATIENT) 12.2 SEC (9.7-13.0)
[2024-05-06] MEDS: CEFTRIAXONE 1,000 MG in DEXTROSE 5%-WATER - 50 ML IVPB ONE (17:50)
[2024-05-06 17:56] VITALS: RESP 18
[2024-05-06] MEDS ORDERED: ONDANSETRON 4 MG/2 ML VIAL IVPUSH PRN (20:13)
[2024-05-06] MEDS: DOCUSATE SODIUM 100 MG CAPSULE (FP) PO SCH (21:30)
[2024-05-06] MEDS ORDERED: DOCUSATE SODIUM 100 MG CAPSULE (FP) PO SCH (22:00)
[2024-05-06] MEDS: NEBIVOLOL 5 MG TABLET (FP) PO ONE (22:29)
[2024-05-06] MEDS: DEXTROSE 5%-NORMAL SALINE 1,000 ML IV SCH (22:40)
[2024-05-07] MEDS ORDERED: ACETAMINOPHEN 1000 MG/100 ML BAG IVPB PRN ×2 (00:32→16:26)
[2024-05-07] MEDS: KETOROLAC TROMETHAMINE 15 MG/ML VIAL IVPUSH ONE (01:21)
[2024-05-07] MEDS: KETOROLAC TROMETHAMINE 15 MG/ML VIAL IM ONE (01:24)
[2024-05-07] MEDS: LEVOTHYROXINE NA 100 MCG TABLET (FP) PO ONE (01:53)
[2024-05-07 03:35] VITALS: BMI 26.0
[2024-05-07 09:01] LABS: BASO % 0.8 % (0-2.0); EOS % 0.8 % (0-4.5); HEMOGLOBIN 12.1 GM/dL (10.7-15.3); LYMPH % 24.1 % (8-40); MCH 29.3 pg (25.7-33.7); MCHC 33.6 g/dl (32.0-36.0); MEAN CELL VOLUME 87.4 fl (80-96); MEAN PLT VOLUME 8.8 fl (7.5-11.1); MONO % 7.8 % (3.8-10.2); NEUT % 66.5 % (42.8-82.8); PLATELET COUNT 289 10^3/uL (134-434); RBC 4.13 M/mm3 (3.60-5.2); RDW 14.1 % (11.6-15.6); WHITE BLOOD COUNT 6.3 K/mm3 (4.0-10.0)
[2024-05-07 09:26] LABS: POTASSIUM 3.7 mmol/L (3.5-5.1)
[2024-05-07 09:28] LABS: CALCIUM 8.9 mg/dL (8.5-10.1)
[2024-05-07 09:29] LABS: BLOOD UREA NITROGEN 14.9 mg/dL (7-18); MAGNESIUM 2.1 mg/dL (1.8-2.4)
[2024-05-07] MEDS: LOSARTAN POTASSIUM 50 MG TABLET PO SCH (09:30)
[2024-05-07] MEDS: CEFTRIAXONE 1 GM in DEXTROSE 5%-WATER - 50 ML IVPB SCH (09:31)
[2024-05-07] MEDS: amLODIPine BESYLATE 5 MG TABLET (FP) PO SCH (09:31)
[2024-05-07 09:32] LABS: CREATININE 0.8 mg/dL (0.55-1.3)
[2024-05-07 09:33] LABS: PHOSPHOROUS 2.6 mg/dL (2.5-4.9)
[2024-05-07] MEDS: ESTROGENS,CONJUGATED 0.625 MG TABLET PO SCH (13:53)
[2024-05-07] MEDS ORDERED: LIDOCAINE HCL/PF 2% SDV 5ML VIAL ONE (14:55)
[2024-05-07] MEDS ORDERED: PROPOFOL 20 ML ONE (14:55)
[2024-05-07] MEDS ORDERED: MIDAZOLAM HCL 2 MG/2 ML SINGLE DOSE VIAL ONE (14:56)
[2024-05-07] MEDS ORDERED: DEXTROSE 5%-NORMAL SALINE 1,000 ML IV SCH (16:26)
[2024-05-07] MEDS ORDERED: ONDANSETRON 4 MG/2 ML VIAL IVPUSH PRN (16:26)
[2024-05-07] MEDS: DOCUSATE SODIUM 100 MG CAPSULE (FP) PO SCH (21:10)
[2024-05-07] MEDS: NEBIVOLOL 5 MG TABLET (FP) PO SCH (21:10)
[2024-05-07] MEDS ORDERED: NEBIVOLOL 5 MG TABLET (FP) PO SCH (22:00)
[2024-05-08] MEDS: LOSARTAN POTASSIUM 50 MG TABLET PO SCH (09:17)
[2024-05-08] MEDS: ESTROGENS,CONJUGATED 0.625 MG TABLET PO SCH (09:17)
[2024-05-08] MEDS: amLODIPine BESYLATE 5 MG TABLET (FP) PO SCH (09:17)
[2024-05-08] MEDS: CEFTRIAXONE 1 GM in DEXTROSE 5%-WATER - 50 ML IVPB SCH (09:17)
[2024-05-08 10:11] VITALS: BP 134/65; PULSE 60; TEMP 98.4
== END 2024-05-08 11:30 | disposition home or self-care (01) ==
LOC: JER 12:50 → JERBED 17:33 → UNDOADMIN 17:33 → J6W 22:09 → JERBED 22:09 → JASUSAT 05-07 14:20 → J6W 05-07 14:26 → JASUSAT 05-07 14:26 → J6W 05-08 09:03
PROVIDERS: ADMIT Internal Medicine; ATTEND Internal Medicine
PROC: 3E0333Z Introduction of Anti-inflammatory into Peripheral Vein, Percutaneous Approach (ICD-10-PCS; principal; 2024-05-08)
PROC: 3E033NZ Introduction of Analgesics, Hypnotics, Sedatives into Peripheral Vein, Percutaneous Approach (ICD-10-PCS; 2024-05-08)
PROC: 3E033GC Introduction of Other Therapeutic Substance into Peripheral Vein, Percutaneous Approach (ICD-10-PCS; 2024-05-08)
PROC: 3E0337Z Introduction of Electrolytic and Water Balance Substance into Peripheral Vein, Percutaneous Approach (ICD-10-PCS; 2024-05-08)
PROC: 3E03329 Introduction of Other Anti-infective into Peripheral Vein, Percutaneous Approach (ICD-10-PCS; 2024-05-08)
PROC: 0TC17ZZ Extirpation of Matter from Left Kidney, Via Natural or Artificial Opening (ICD-10-PCS; 2024-05-08)
DX: N13.2 Hydronephrosis with renal and ureteral calculous obstruction (principal); N13.5 Crossing vessel and stricture of ureter without hydronephrosis; E06.3 Autoimmune thyroiditis; M35.00 Sjogren syndrome, unspecified; E78.5 Hyperlipidemia, unspecified; I10 Essential (primary) hypertension; N80.9 Endometriosis, unspecified; Z87.442 Personal history of urinary calculi; Z53.8 Procedure and treatment not carried out for other reasons
CPT/HCPCS: 50080; 96365; 96366; 96368; 96375; C1747; 0241U-QW; 36415; 71046-TC-FY; 74176-TC; 80048; 80053; 81003; 82360; 83735; 84100; 84443; 85025; 85610; 85730; 86850; 86900; 86901; 87086; 88300-TC; 93005; 93010; 99285-25; G0378; J1410

== ENCOUNTER 2024-09-27 09:06 | Observation (INO) | payer BC ==
[2024-09-27] MEDS ORDERED: ACETAMINOPHEN INJECTION 100 ML ONE (10:30)
[2024-09-27 10:33] LABS: BASO % 1.2 % (0-2.0); EOS % 1.1 % (0-4.5); HEMATOCRIT 36.9 % (32.4-45.2); HEMOGLOBIN 12.1 GM/dL (10.7-15.3); LYMPH % 21.4 % (8-40); MCH 28.9 pg (25.7-33.7); MCHC 32.9 g/dl (32.0-36.0); MEAN CELL VOLUME 87.8 fl (80-96); MEAN PLT VOLUME 8.6 fl (7.5-11.1); MONO % 9.6 % (3.8-10.2); NEUT % 66.7 % (42.8-82.8); PLATELET COUNT 312 10^3/uL (134-434); RDW 13.9 % (11.6-15.6)
[2024-09-27 10:36] LABS: EPI CELLS 9 /uL (0-25.1); HYALINE CASTS 0 /uL (0-3.1); URINE APPEARANCE CLOUDY; URINE BACTERIA >9,000 /uL (0-1359); URINE BILIRUBIN NEGATIVE (NEGATIVE); URINE COLOR YELLOW; URINE GLUCOSE (UA) NEGATIVE (NEGATIVE); URINE KETONE NEGATIVE (NEGATIVE); URINE LEUK ESTERASE 2+ (NEGATIVE); URINE NITRITE NEGATIVE (NEGATIVE); URINE PROTEIN 1+ (NEGATIVE); URINE UROBILINOGEN 0.2 mg/dL (0.2-1.0); URINE WBC 1708 /uL (0-25.8)
[2024-09-27] MEDS: ACETAMINOPHEN 1000 MG/100 ML BAG IVPB ONE (10:38)
[2024-09-27] MEDS: ONDANSETRON 4 MG/2 ML VIAL IVPB ONE (10:43)
[2024-09-27 10:50] LABS: URINE CRYSTALS NONE SEEN /hpf; URINE RBC 69.1 /uL (0-23.9)
[2024-09-27 10:57] LABS: POTASSIUM 3.9 mmol/L (3.5-5.1)
[2024-09-27 10:59] LABS: ALBUMIN 3.4 g/dl (3.4-5.0); BLOOD UREA NITROGEN 15.8 mg/dL (7-18); CALCIUM 9.7 mg/dL (8.5-10.1)
[2024-09-27 11:02] LABS: CREATININE 0.9 mg/dL (0.55-1.3)
[2024-09-27 11:04] LABS: BILIRUBIN,TOTAL 0.4 mg/dL (0.2-1); TOT PROT 7.9 g/dl (6.4-8.2)
[2024-09-27] MEDS ORDERED: CEFTRIAXONE 1 G/50 ML PREMIX 50 ML IVPB ONE (11:12)
[2024-09-27] MEDS: CEFTRIAXONE 1,000 MG in DEXTROSE 5%-WATER - 50 ML IVPB ONE (11:17)
[2024-09-27] MEDS: amLODIPine BESYLATE 5 MG TABLET (FP) PO SCH (14:36)
[2024-09-27 16:02] VITALS: BMI 25.2
[2024-09-27] MEDS: ATORVASTATIN CA 10 MG TABLET (FP) PO SCH (21:18)
[2024-09-27] MEDS: ACETAMINOPHEN 325 MG TABLET (FP) PO ONE (21:18)
[2024-09-28] MEDS: CEFTRIAXONE 1 G/50 ML PREMIX 50 ML IVPB SCH (10:57)
[2024-09-28] MEDS: LOSARTAN POTASSIUM 50 MG TABLET PO SCH (10:57)
[2024-09-28] MEDS: ENOXAPARIN NA (PORCINE) 40 MG/0.4 ML DISP.SYRIN SQ SCH (12:53)
[2024-09-28] MEDS: ACETAMINOPHEN 325 MG TABLET (FP) PO ONE (21:19)
[2024-09-29] MEDS: NEBIVOLOL 5 MG TABLET (FP) PO SCH (11:26)
[2024-09-29] MEDS: LEVOTHYROXINE NA 112 MCG TABLET (FP) PO SCH (13:42)
[2024-09-29] MEDS: LACTOBACILLUS ACIDOPHILUS 1 TABLET PO SCH (21:25)
[2024-09-29 22:14] VITALS: RESP 18
[2024-09-30] MEDS: LEVOTHYROXINE NA 112 MCG TABLET (FP) PO SCH (07:44)
[2024-09-30 09:30] VITALS: BP 140/75; PULSE 62; TEMP 97.9
[2024-09-30] MEDS: CEFUROXIME AXETIL 500 MG TABLET PO ONE (14:06)
== END 2024-09-30 15:00 | disposition home or self-care (01) ==
LOC: JER 09:06 → JERBED 11:02 → J6S 12:46
PROVIDERS: ADMIT Internal Medicine; ATTEND Internal Medicine
PROC: 3E033NZ Introduction of Analgesics, Hypnotics, Sedatives into Peripheral Vein, Percutaneous Approach (ICD-10-PCS; principal; 2024-09-27)
PROC: 3E03329 Introduction of Other Anti-infective into Peripheral Vein, Percutaneous Approach (ICD-10-PCS; 2024-09-27)
DX: N39.0 Urinary tract infection, site not specified (principal); E06.3 Autoimmune thyroiditis; I10 Essential (primary) hypertension; N12 Tubulo-interstitial nephritis, not specified as acute or chronic; E78.5 Hyperlipidemia, unspecified; M35.00 Sjogren syndrome, unspecified; K57.92 Diverticulitis of intestine, part unspecified, without perforation or abscess without bleeding; N80.9 Endometriosis, unspecified; Z90.79 Acquired absence of other genital organ(s); Z87.442 Personal history of urinary calculi; K52.9 Noninfective gastroenteritis and colitis, unspecified; K59.00 Constipation, unspecified; N13.2 Hydronephrosis with renal and ureteral calculous obstruction; N13.5 Crossing vessel and stricture of ureter without hydronephrosis
CPT/HCPCS: 0241U-QW; 36415; 76775-TC; 80053; 81003; 85025; 87086; 87186; 93005; 93010; 96365; 96366; 96375; 99285-25; G0378; J0131